=== PATIENT | male | born 1960 | race Caucasian/White ===

== ENCOUNTER 2021-10-22 03:36 | Emergency (ER) | payer OTHER ==
[2021-10-22] MEDS ORDERED: Lidocaine 1% (PF) 30 ML VIAL ONE (03:49)
[2021-10-22] MEDS ORDERED: Boostrix 0.5 ML (Tdap) VIAL ONE (04:11)
== END 2021-10-22 05:14 | disposition home or self-care (01) ==
LOC: BURERS 03:36
DX: S02.2XXA Fracture of nasal bones, initial encounter for closed fracture (principal); S01.81XA Laceration without foreign body of other part of head, initial encounter; Z23 Encounter for immunization; Z79.899 Other long term (current) drug therapy; W01.0XXA Fall on same level from slipping, tripping and stumbling without subsequent striking against object, initial encounter
CPT/HCPCS: 12015; 70450; 90471; 90715; J2001